=== PATIENT | male | born 1975 | race Asian ===

== ENCOUNTER → 2022-08-21 13:17 | Outpatient (CLI) | payer OTHER, SELFPAY ==
[2022-08-21 14:28] LABS: COVID19 -Nasal RAPID Negative (Negative)
--- NOTE | 2022-08-21 20:00 | DI.NM.S_ITS ---
DATE OF SERVICE: 08/21/2022 PROCEDURE PERFORMED: Exercise treadmill stress test without imaging. ORDERING PROVIDER: Dr. Jw Romero. INDICATIONS: The patient is a 46-year-old hypertensive male with palpitations, chest discomfort, and exertional dyspnea. FINDINGS: 1. The patient was able to exercise for 9 minutes, 26 seconds on a standard Alan protocol, suggesting ebcl-ly-hltgaifftx reduced exercise capacity with an AN of +14 percent, achieving 10.2 METs. 2. He had a normal heart rate and blood pressure response to exercise, achieving a maximum heart rate of 159 (91% of his predicted maximum). His resting blood pressure was 118/80, increasing to a maximum of 190/80. 3. He had no chest discomfort or other anginal symptoms. 4. His resting ECG shows sinus rhythm with normal ST segments with fairly frequent PVCs, at times, in a bigeminal pattern. With stress, there are no significant ST-segment shifts. While he continues to have occasional isolated PVCs, they become less frequent with exercise, then increasing in frequency again in recovery, but without any complex ventricular ectopy. IMPRESSION: 1. Normal exercise treadmill study for ischemia. 2. Mild to moderately reduced exercise capacity with normal heart rate and blood pressure response to exercise. He had frequent PVCs at rest, at times, in a bigeminal pattern, generally improving with exercise, and returning in recovery but without any complex ventricular ectopy. Tomer Maciel - MARILYN/adry/maribell doc#: [id number]/job#: [id number] dd: 08/21/2022 16:50:00 dt: 08/21/2022 19:17:00 DICTATING /COPIES TO: Kip Churchill MD COPIES MNE: FIDEL;
== END ==
PROVIDERS: Referring Provider Internal Medicine Cardiovascular Disease; Visit Provider Internal Medicine Cardiovascular Disease
DX: I49.3 Ventricular premature depolarization (principal); R07.89 Other chest pain; R00.2 Palpitations; R06.00 Dyspnea, unspecified; I10 Essential (primary) hypertension; Z20.822 Contact with and (suspected) exposure to COVID-19
CPT/HCPCS: 87635; 93017